=== PATIENT | female | born 1990 | race Caucasian/White ===

== ENCOUNTER 2020-08-24 18:22 | Inpatient (IN) | payer BC ==
[~2020-08-24] VITALS: Ht 167.6 cm; Wt 79.5 kg
[2020-08-24] MEDS ORDERED: FENTANYL PF 100 MCG/2ML ONE (18:47)
[2020-08-24] MEDS ORDERED: NEWBORN KIT ONE (18:50)
[2020-08-24] MEDS ORDERED: LIDOCAINE 1%, 20ML ONE (18:50)
[2020-08-24] MEDS ORDERED: MISOPROSTOL 200 MCG TABLET ONE (18:50)
[2020-08-24] MEDS ORDERED: OXYTOCIN 30U/ 0.9% NaCL 500ML 500 ML ONE (18:50)
[2020-08-24] MEDS ORDERED: FENTANYL PF 100 MCG/2ML IV PRN (19:00)
[2020-08-24] MEDS ORDERED: FENTANYL PF 100 MCG/2ML IVPush PRN (19:00)
[2020-08-24] MEDS ORDERED: ONDANSETRON 2MG/ML, 2ML IVPush PRN (19:00)
[2020-08-24] MEDS ORDERED: OXYTOCIN 30U/ 0.9% NaCL 500ML 500 ML IV ONE (19:00)
[2020-08-24] MEDS ORDERED: TERBUTALINE 1 MG/ML, 1ML IVPush PRN (19:00)
[2020-08-24] MEDS ORDERED: D5%-LACTATED RINGERS 1,000 ML IV SCH (19:00)
[2020-08-24] MEDS ORDERED: LACTATED RINGERS 1,000 ML IV SCH ×2 (19:00→20:00)
[2020-08-24] MEDS ORDERED: TERBUTALINE 1 MG/ML, 1ML SQ PRN (19:00)
[2020-08-24] MEDS ORDERED: CALCIUM CARBONATE 500 MG TAB.CHEW PO PRN (19:00)
[2020-08-24] MEDS ORDERED: FENTANYL/BUPIV./NS/PF 250 ML EPIDCONT ONE (19:04)
[2020-08-24 19:15] LABS: BASOPHILS % (AUTO) 0 % (0-1); EOSINOPHILS % (AUTO) 1 % (1-7); LYMPHOCYTES % (AUTO) 25 % (22-44); MEAN CORPUSCULAR HEMOGLOBIN 32.3 pg (27.0-34.8); MONOCYTES % (AUTO) 8 % (2-9); NEUTROPHILS % (AUTO) 66 % (42-75); PLATELET COUNT 277 x10^3/uL (130-400); RED BLOOD COUNT 3.91 x10^6/uL (3.82-5.3); RED CELL DISTRIBUTION WIDTH 12.9 % (9.6-15.2)
[2020-08-24 19:28] LABS: MD NO
[2020-08-24] MEDS ORDERED: BUPIVACAINE 0.25% ONE (19:37)
[2020-08-24] MEDS ORDERED: EPHEDRINE 50 MG/ML, 1ML IVPush PRN (20:00)
[2020-08-24] MEDS ORDERED: NALOXONE 0.4 MG/ML, 1ML IVPush PRN (20:00)
[2020-08-24] MEDS ORDERED: FENTANYL/BUPIV./NS/PF 250 ML EPIDCONT SCH (20:00)
[2020-08-24] MEDS ORDERED: LACTATED RINGERS 1,000 ML IVBOLUS PRN (20:00)
[2020-08-24] MEDS ORDERED: PENICILLIN GK 5,000,000 UNITS in DEXTROSE 5% 100 ML IVPB ONE (20:00)
[2020-08-24 20:06] VITALS: BP 106/65
[2020-08-25] MEDS ORDERED: PENICILLIN GK 2,500,000 UNITS in DEXTROSE 5% 100 ML IVPB SCH
[2020-08-25] MEDS ORDERED: CEFAZOLIN 2,000 MG in SODIUM CHLORIDE 0.9% 50 ML IV ONE (03:30)
[2020-08-25] MEDS ORDERED: DIPH,PERTUSS(ACELL),TET VAC/PF NC IM-VACC PRN (04:00)
[2020-08-25] MEDS ORDERED: ACETAMINOPHEN 325 MG TABLET PO PRN ×2 (04:00)
[2020-08-25] MEDS ORDERED: MISOPROSTOL 200 MCG TABLET PR PRN (04:00)
[2020-08-25] MEDS ORDERED: METHYLERGONOVINE 0.2 MG/ML IM PRN (04:00)
[2020-08-25] MEDS ORDERED: CARBOPROST TROMETHAMINE 250 MCG/ML, 1ML IM PRN (04:00)
[2020-08-25] MEDS ORDERED: SIMETHICONE 80 MG CHEW TAB PO PRN (04:00)
[2020-08-25] MEDS ORDERED: CEFAZOLIN PMX 2GM/50ML 50 ML IVPB ONE (04:00)
[2020-08-25] MEDS ORDERED: OXYcodone/APAP 5/325MG TABLET PO PRN (04:00)
[2020-08-25] MEDS: OXYTOCIN 30U/ 0.9% NaCL 500ML 500 ML IV SCH ×2 (05:05→14:00)
[2020-08-25 05:55] VITALS: BP 113/68
[2020-08-25 07:55] VITALS: BP 113/74
[2020-08-25] MEDS: DOCUSATE 100 MG CAPSULE PO PRN ×2 (08:33→21:30)
[2020-08-25] MEDS: IBUPROFEN 600 MG TABLET PO PRN ×3 (08:33→21:30)
[2020-08-25] MEDS: OXYcodone/APAP 5/325MG TABLET PO PRN ×2 (08:34→14:51)
[2020-08-25] MEDS: PRENATAL VIT/IRON/FA 1 EACH TABLET PO SCH (08:42)
[2020-08-25 10:44] LABS: BASOPHILS % (AUTO) 0 % (0-1); EOSINOPHILS % (AUTO) 0 % (1-7); LYMPHOCYTES % (AUTO) 12 % (22-44); MEAN CORPUSCULAR HEMOGLOBIN 32.5 pg (27.0-34.8); MEAN CORPUSCULAR HGB CONC 35.2 g/dL (32.4-35.8); MEAN PLATELET VOLUME 7.8 fL (7.4-10.4); MONOCYTES % (AUTO) 3 % (2-9); NEUTROPHILS % (AUTO) 85 % (42-75); PLATELET COUNT 191 x10^3/uL (130-400); RED BLOOD COUNT 2.77 x10^6/uL (3.82-5.3); RED CELL DISTRIBUTION WIDTH 12.8 % (9.6-15.2)
[2020-08-25 10:45] LABS: MD NO
[2020-08-25 12:10] VITALS: BP 108/77
[2020-08-25 18:02] VITALS: BP 111/67
[2020-08-25 19:50] VITALS: BP 110/76
[2020-08-25 23:50] VITALS: BP 116/70
[2020-08-26] MEDS: DOCUSATE 100 MG CAPSULE PO PRN (07:50)
[2020-08-26] MEDS: PRENATAL VIT/IRON/FA 1 EACH TABLET PO SCH (07:50)
[2020-08-26] MEDS: IBUPROFEN 600 MG TABLET PO PRN ×2 (07:50→14:01)
[2020-08-26 08:38] VITALS: BP 101/66
[2020-08-26] MEDS: OXYTOCIN 30U/ 0.9% NaCL 500ML 500 ML IV SCH ×2 (12:03)
[2020-08-26] MEDS ORDERED: IBUP-1222 PO (12:45)
[2020-08-26] MEDS ORDERED: FERR325T18 PO (12:45)
[2020-08-26] MEDS ORDERED: DOCU-131 PO (12:46)
[2020-08-26 15:51] VITALS: BP 127/74
== END 2020-08-26 16:15 | disposition home or self-care (01) | DRG 806 ==
LOC: LDOP 18:22 → LDIP 18:49 → 2NW 08-25 05:30
PROVIDERS: ADMIT Obstetrics & Gynecology Maternal & Fetal Medicine; ATTEND Obstetrics & Gynecology Maternal & Fetal Medicine
PROC: 10E0XZZ Delivery of Products of Conception, External Approach (ICD-10-PCS; principal; 2020-08-25)
PROC: 0KQM0ZZ Repair Perineum Muscle, Open Approach (ICD-10-PCS; 2020-08-25)
PROC: 3E0R3BZ Introduction of Anesthetic Agent into Spinal Canal, Percutaneous Approach (ICD-10-PCS; 2020-08-25)
PROC: 00HU33Z Insertion of Infusion Device into Spinal Canal, Percutaneous Approach (ICD-10-PCS; 2020-08-25)
DX: O76 Abnormality in fetal heart rate and rhythm complicating labor and delivery (principal); D62 Acute posthemorrhagic anemia; Z37.0 Single live birth; O72.1 Other immediate postpartum hemorrhage; Z3A.37 37 weeks gestation of pregnancy; Z20.822 Contact with and (suspected) exposure to COVID-19; O90.81 Anemia of the puerperium; O70.1 Second degree perineal laceration during delivery
CPT/HCPCS: 36415; 85025; 86592; 86850; 86900; 87635; G0378; J0690; J2540; J3010; J2590; J7120